=== PATIENT | female | born 1980 | race African-American/Black ===

== ENCOUNTER 2018-09-05 13:08 | Emergency (ER) | payer SELFPAY ==
[~2018-09-05] VITALS: Ht 170.2 cm; Wt 135.6 kg
[2018-09-05 13:08] VITALS: BP 140/98
[2018-09-05] MEDS ORDERED: Ketorolac 30mg Inj IV ONE (14:00)
[2018-09-05] MEDS ORDERED: Morphine Sulfate 4mg/ml Inj (IV/IM USE ONLY) IVP ONE (14:00)
[2018-09-05 14:23] LABS: APPEARANCE,URINE TURBID; BILIRUBIN, URINE NEGATIVE (NEGATIVE); COLOR,URINE YELLOW; GLUCOSE, URINE (UA) NEGATIVE (NEGATIVE); KETONES,URINE 1+ (NEGATIVE); LEUKOCYTE ESTERASE ,URINE 1+ (NEGATIVE); NITRITE,URINE NEGATIVE (NEGATIVE); PH,URINE 5 (4.5-8.0); PROTEIN,URINE 2+ (NEGATIVE); UROBILINOGEN,URINE NORMAL MG/DL (0.0-1.0)
[2018-09-05 14:25] LABS: BASOPHILS % (AUTO) 0.4 % (0.0-2.0); EOSINOPHILS % (AUTO) 0.3 % (0.0-3.0); HEMATOCRIT 35.3 % (37.0-47.0); HEMOGLOBIN 11.6 G/DL (12.0-16.0); MEAN CORPUSCULAR VOLUME 77 FL (80-99); MONOCYTES % (AUTO) 3.3 % (1.0-10.0); PLATELET COUNT 349 K/UL (150-450); RED BLOOD COUNT 4.56 M/UL (4.20-5.40); WHITE BLOOD COUNT 11.7 K/UL (4.8-10.8)
[2018-09-05 14:31] LABS: ANION GAP 14 mmol/L (5-15); BLOOD UREA NITROGEN 17 mg/dL (7-18); CALCIUM 9.1 MG/DL (8.5-10.1); CARBON DIOXIDE 20 MMOL/L (21-32); CHLORIDE 102 MMOL/L (98-107); CREATININE 1.1 MG/DL (0.55-1.30); POTASSIUM 3.8 MMOL/L (3.5-5.1); SODIUM 136 MMOL/L (136-145)
[2018-09-05 14:35] LABS: ALANINE AMINOTRANSFERASE 18 U/L (12-78); ALBUMIN 3.5 G/DL (3.4-5.0); ALBUMIN/GLOBULIN RATIO 0.7 (1.0-2.7); ALKALINE PHOSPHATASE 84 U/L (46-116); ASPARTATE AMINO TRANSFERASE 25 U/L (15-37); BILIRUBIN,TOTAL 0.4 MG/DL (0.2-1.0)
[2018-09-05 15:00] VITALS: BP 142/69
--- NOTE | 2018-09-05 15:30 | Diagnostic Imaging Report ---
Indication: Abdominal pain Technique: Continuous helical transaxial imaging of the abdomen and pelvis was obtained from the lung bases to the pubic symphysis. No intravenous contrast was administered. Coronal 2-D reformats were also obtained. Automatic Exposure Control was utilized. Total Dose length Product (DLP): 1073.[address] Dose Index Volume (CTDIvol): 19.75 mGy Comparison: none Findings: Lung bases are clear. There is a right perinephric stranding present although the distal ureter is not well seen there is a punctate calcification measuring about 3 mm in the expected location of the right UVJ suspicious for intraureteral stone. There is mild right hydroureteronephrosis present. There is also periureteral stranding. The left kidney is unremarkable. Small lymph nodes are seen in the retroperitoneum nonspecific. There is a tiny left inguinal hernia containing fat. The bladder is completely nondistended. Uterus is noted. The appendix is not definitely seen. There are no secondary signs of appendicitis. There is generalized diminished quality of the study due to less than optimal, [id number] ratio on resolution. This is probably related to the patient's body habitus which is large. IMPRESSION: Mild right hydroureteronephrosis and perinephric/periureteral stranding most likely on the basis of a tiny 3 mm stone in the right UVJ. Evaluation is suboptimal as the distal ureter is not seen well. Presence of pyelonephritis/UTI not excluded. Correlate clinically. Limited evaluation due to body habitus The CT scanner at [facility] is accredited by the [employer] and the scans are performed using dose optimization techniques as appropriate to a performed exam including Automatic Exposure control.
[2018-09-05] MEDS ORDERED: IBUPROFEN600 MG ORAL (16:04)
[2018-09-05] MEDS ORDERED: FLOMAX0.4 MG ORAL (16:04)
[2018-09-05] MEDS ORDERED: NORCO 5-325 TA1 EACH ORAL (16:04)
[2018-09-05 16:47] VITALS: BP 135/67
[2018-09-05 16:48] VITALS: BP 135/67
--- NOTE | 2018-09-05 18:12 | Emergency Room Report ---
History of Present Illness General Chief Complaint: Abdominal Pain Source: Patient Present Illness HPI Patient presents emergency room today complaining of right flank pain. Patient states that she had acute onset of severe right flank pain starting early this morning. The pain radiates from her back into her groin. She has dysuria urinary frequency. She denies any fever chest pain shortness breath. Denies any prior episodes of this. States that she is concerned maybe is a kidney stone versus appendix per she states that she's not on her period. She states that she's not . No other complaint or noted patient noted to be highly severe and patient appear very uncomfortable. No other modifying factors. No other associated signs and symptoms. No other complaints were noted. Allergies: Coded Allergies: PENICILLINS (Unverified Allergy, Unknown, 09/05/18) Uncoded Allergies: PENICILLIN (Allergy, Unknown, 09/05/18) Patient History Past Medical History: HTN Past Surgical History: none Pertinent Family History: none Social History: Denies: smoking, alcohol use, drug use Last Menstrual Period: 07/2018 Now: No Reviewed Nursing Documentation: PMH: Agreed; PSxH: Agreed Nursing Documentation-PMH Past Medical History: No History, Except For Hx Hypertension: Yes Review of Systems All Other Systems: negative except mentioned in HPI Physical Exam Vital Signs Date Time Temp Pulse Resp B/P (MAP) Pulse Ox O2 Delivery O2 Flow Rate FiO2 09/05/18 13:08 97.5 16 140/98 98 Room Air 09/05/18 13:08 80 Sp02 EP Interpretation: reviewed, normal General Appearance: normal inspection, well appearing, no apparent distress, alert Head: atraumatic Eyes: bilateral eye normal inspection ENT: normal ENT inspection, hearing grossly normal, normal voice Neck: normal inspection, full range of motion, supple, no bony tend Respiratory: normal inspection, lungs clear, normal breath sounds, no respiratory distress, no retraction, no wheezing Cardiovascular #1: regular rate, rhythm, no edema Gastrointestinal: normal inspection, normal bowel sounds, non tender, soft, no guarding, no hernia Genitourinary: CVA tenderness (R) Musculoskeletal: normal inspection, back normal, normal range of motion Neurologic: normal inspection, alert, responsive, speech normal Psychiatric: normal inspection, judgement/insight normal, mood/affect normal Skin: normal inspection, normal color, no rash Medical Decision Making Diagnostic Impression: Primary Impression: Renal colic on right side Additional Impression: Renal stone ER Course Patient presents emergency department today complaining flank pain. Differential considerations include kidney stone, kidney infection, pyelonephritis, appendicitis, ovarian torsion ovarian cysts just name a few.Given the severity of the patient's presentation I felt this is a highly complex patient. This patient required extensive workup. Patient's laboratory workup shows evidence of blood in urine.. Patient's status was negative. CT scan abdomen pelvis was performed because of the pain which shows evidence of 3 mm right-sided kidney stone at the UVJ. Patient given Toradol fluids morphine and felt much better. Given the patient's own much better for the patient be discharged home. Patient was given prescription for Motrin [place] and Flomax. There is no evidence of infection that for antibiotics are not indicated. Patient was advised to follow-up with outpatient urology.Patient is advised to follow up with primary doctor in 2-3 days and return the emergency room for any worsening symptoms and as needed. Labs Test 09/05/18 13:55 White Blood Count 11.7 K/UL (4.8-10.8) Red Blood Count 4.56 M/UL (4.20-5.40) Hemoglobin 11.6 G/DL (12.0-16.0) Hematocrit 35.3 % (37.0-47.0) Mean Corpuscular Volume 77 FL (80-99) Mean Corpuscular Hemoglobin 25.4 PG (27.0-31.0) Mean Corpuscular Hemoglobin Concent 32.7 G/DL (32.0-36.0) Red Cell Distribution Width 14.0 % (11.6-14.8) Platelet Count 349 K/UL (150-450) Mean Platelet Volume 7.3 FL (6.5-10.1) Neutrophils (%) (Auto) 80.0 % (45.0-75.0) Lymphocytes (%) (Auto) 16.0 % (20.0-45.0) Monocytes (%) (Auto) 3.3 % (1.0-10.0) Eosinophils (%) (Auto) 0.3 % (0.0-3.0) Basophils (%) (Auto) 0.4 % (0.0-2.0) Prothrombin Time 10.7 SEC (9.30-11.50) Prothromb Time International Ratio 1.0 (0.9-1.1) Activated Partial Thromboplast Time 29 SEC (23-33) Urine Color Yellow Urine Appearance Turbid Urine pH 5 (4.5-8.0) Urine Specific [place] 1.025 (1.005-1.035) Urine Protein 2+ (NEGATIVE) Urine Glucose (UA) Negative (NEGATIVE) Urine Ketones 1+ (NEGATIVE) Urine Blood 2+ (NEGATIVE) Urine Nitrite Negative (NEGATIVE) Urine Bilirubin Negative (NEGATIVE) Urine Urobilinogen Normal MG/DL (0.0-1.0) Urine Leukocyte Esterase 1+ (NEGATIVE) Urine RBC 2-4 /HPF (0 - 2) Urine WBC 0-2 /HPF (0 - 2) Urine Squamous Epithelial Cells Few /LPF (NONE/OCC) Urine Amorphous Sediment Many /LPF (NONE) Urine Bacteria Few /HPF (NONE) Urine HCG, Qualitative Negative (NEGATIVE) Sodium Level 136 MMOL/L (136-145) Potassium Level 3.8 MMOL/L (3.5-5.1) Chloride Level 102 MMOL/L (98-107) Carbon Dioxide Level 20 MMOL/L (21-32) Anion Gap 14 mmol/L (5-15) Blood Urea Nitrogen 17 mg/dL (7-18) Creatinine 1.1 MG/DL (0.55-1.30) Estimat Glomerular Filtration Rate > 60 mL/min (>60) Glucose Level 147 MG/DL (74-106) Calcium Level 9.1 MG/DL (8.5-10.1) Total Bilirubin 0.4 MG/DL (0.2-1.0) Aspartate Amino Transf (AST/SGOT) 25 U/L (15-37) Alanine Aminotransferase (ALT/SGPT) 18 U/L (12-78) Alkaline Phosphatase 84 U/L (46-116) Total Protein 8.7 G/DL (6.4-8.2) Albumin 3.5 G/DL (3.4-5.0) Globulin 5.2 g/dL Albumin/Globulin Ratio 0.7 (1.0-2.7) Lipase 98 U/L (73-393) CT/MRI/US Diagnostic Results CT/MRI/US Diagnostic Results : Imaging Test Ordered: CT abdomen and pelvis: Right renal stone Last Vital Signs Date Time Temp Pulse Resp B/P (MAP) Pulse Ox O2 Delivery O2 Flow Rate FiO2 09/05/18 16:48 97.9 88 20 135/67 99 Room Air 85 Status: improved Disposition: HOME, SELF-CARE Condition: Stable Scripts Tamsulosin HCl (Flomax) 0.4 Mg Cap.er.24h 0.4 MG ORAL DAILY for 7 Days, CAP Prov: Chauncey Fuchs MD 09/05/18 Ibuprofen* (MOTRIN*) 600 Mg Tablet 600 MG ORAL Q8H PRN for For Pain, #30 TAB 0 Refills Prov: Chauncey Fuchs MD 09/05/18 Hydrocodone Bit/Acetaminophen 5-325* (NORCO 5-325*) 1 Each Tablet 1 TAB ORAL Q6H PRN for For Pain, #20 TAB 0 Refills Prov: Chauncey Fuchs MD 09/05/18 Patient Instructions: Renal Colic, [id number] Chauncey Fuchs MD Sep 05, 2018 18:12
== END 2018-09-05 16:48 | disposition home or self-care (01) ==
LOC: EDBD 13:08 → EMR 13:48
DX: N20.0 Calculus of kidney (principal); I10 Essential (primary) hypertension
CPT/HCPCS: 36415; 74176; 80053; 81003; 81025; 83690; 85025; 85610; 85730; 96361; 96374; 96375; 99284; J1885; J2270; J2405